=== PATIENT | female | born 1945 | race Caucasian/White ===

== ENCOUNTER 2024-03-11 12:20 | Inpatient (IN) ==
--- NOTE | 2024-03-11 13:29 | Emergency Department Note ---
Impression & Plan Tachy-andrez syndrome, Atrial tachycardia, Hypertension ED Provider Note NAME: FEDERICO DINH AGE: 78 SEX: F : 1945 ARRIVES VIA: Walk-In INFORMANT: Patient, ED PROVIDER(S): Imer Corona MD CHIEF COMPLAINT: Elevated heart rate, dizziness MEDICAL DECISION MAKING: Patient presents due to concern for abnormal EKG and lightheadedness. IV was established and blood work was obtained. Blood work shows a normal white count mild elevation hemoglobin the patient was ordered IV fluids. Platelet count is unremarkable. Kidney function with creatinine 1.4 which is slightly higher than her baseline of 1.1 from about a week prior. The patient did receive IV fluids. BSG 131 but nonfasting and not DKA. TSH is elevated but free T4 is normal troponin negative. I did review the EKGs with Dr. Cassidy stated the patient likely had ectopic atrial rhythm on 1 and noticed a likely atrial tachycardia with a 2 1 block. Given the patient's wide range of heart rates in a short period of time we did suggest admission on telemetry. I did [place] the on-call hospital service and the patient was admitted by Dr. Weaver. Discussion w/ other healthcare providers: Dr. Mitchell with cardiology Dr. Weaver with inpatient medicine service Prior /Outside records reviewed: I reviewed a primary care visit from Juanis emmanuelle I will from earlier today. Patient was noted to be tachycardic and had an EKG. this note was currently still in draft. I did review her vascular surgery outpatient note from March 03, 2024. Patient was evaluated in the emergency department prior to the visit for flank and back pain noted to have an infrarenal AAA 5.6 cm. Patient was to have a CT and echocardiogram and then discussing surgical intervention thereafter. Patient also was seen for left subclavian occlusion asymptomatic and recommended she control her blood pressure readings based on readings in her right arm. Patient was seen by Dr. Peraza and Dr. Alberto Differential diagnosis: Benign positional vertigo, dehydration, hypovolemia, anemia, infection, hypoglycemia, electrolyte abnormalities, arrhythmia, tox among others were considered. Diagnostics, as interpreted by me: ECG: No obvious P waves noted possible junctional accelerated rhythm, rate of 109, normal QRS duration, left axis deviation no ST elevations. Repeat EKG interpreted by myself Sinus bradycardia, rate of 58, normal intervals, left axis deviation no ST elevations. P waves are apparent on this EKG compared to prior. Cardiac monitoring: An order was placed for continuous cardiac monitoring. The monitor shows a rate of 65 with sinus rhythm. Patient was placed on pulse oximetry Medical decision rules: None Imaging studies: I informally interpreted the patient'sChest x-ray does not show obvious pneumonia or pneumothorax with formal report to follow. HPI: Patient presents due to concern for abnormal EKG and abnormal vital signs while being seen in the office today. Patient reportedly was diaphoretic at the time of the EKG sat up quickly and had low blood pressure and felt lightheaded and dizzy. The patient was referred here for further evaluation and treatment. Patient denies any chest pains or shortness of breath. Patient states that the people episode of dizziness lasted about 60 seconds in duration. The patient denies any thyroid dysfunction. The patient has been placed on new medications in light of untreated hypertension. The patient was recently diagnosed with a AAA has had follow-up with Dr. Alberto and recently did complete her CT angiography. Still pending an echocardiogram as well as a follow-up with Dr. Alberto to discuss further treatment options. Patient denies any abdominal pain no nausea or vomiting. Patient states that she did have 2 cups of coffee this morning and states she typically drinks 2 to 4 cups of coffee. Patient does take some elderberry as well as glucosamine. Patient states that she has developed a dry cough since being started on lisinopril and did have an increase from 2.5 to 5 mg recently. PAST MEDICAL HISTORY: See Below PAST SURGICAL HISTORY: See Below SOCIAL HISTORY: See Below HOME MEDICATIONS: See Below ALLERGIES: See Below VITALS: See Below PHYSICAL EXAMINATION: GENERAL: NAD, non-toxic. EYE EXAM: Normal conjunctiva. PERRL, no anisocoria and EOM's grossly intact w/o pain. OROPHARYNX: Moist mucus membranes, grossly normal dentition. NECK: Trachea midline, no stridor. Supple, no nuchal rigidity, no adenopathy, non-tender. No signs of meningismus. FROM of the neck with good chin to chest and neck extension. LUNGS: Clear to auscultation. Normal chest wall mechanics. HEART: NSR, no MRG. ABDOMEN: Abdomen soft, non-tender, no masses, no rebound or guarding. BACK: No CVA TTP. SKIN: No rashes and no bruising. UPPER EXTREMITIES: Upper extremities are grossly normal. LOWER EXTREMITIES: Grossly normal, no edema. NEURO EXAM: A&O x3, cranial nerves II-XII grossly intact, normal speech, moves all 4 extremities. Past Med/Surg History Problem List (Updated 03/11/24 @ 19:24 by Imer Corona MD) Atrial tachycardia (Acute) Tachy-andrez syndrome (Acute) Vertebral artery stenosis Hyperglycemia Hypertension (Acute) Subclavian artery stenosis, left (Acute) AAA (abdominal aortic aneurysm) without rupture (Acute) Strain of mid-back (Acute) Surgical History H/O section Family History Father Coronary heart disease Lung cancer Lung disease Hypertension Heart disease Myocardial infarction Grandmother (Maternal) Diabetes Brother Diabetes Mother Diabetes Son COPD (chronic obstructive pulmonary disease) Daughter Diabetes Son COPD (chronic obstructive pulmonary disease) Diabetes Myocardial infarction Denies family history of Ovarian cancer Prostate cancer Cerebral aneurysm Alzheimer disease Bipolar disorder Clotting disorder Crohn's disease Dementia Depression Breast cancer Colorectal cancer Stroke Asthma Social History Smoking Status: Former smoker Tobacco Type: Cigarettes Second Hand Exposure: No; Do You Dip or Chew Tobacco: No; Hx Alcohol Use: No Hx Substance Use: No Preferred Language: Belgian Communication Ability: Effective Associate Theatre Professor Required: No Beliefs That Will Affect Care: None marital status: Current Living Situation: Alone Feels Safe at Home: Yes Assistive Devices: None Allergies Allergies Allergy/AdvReac Type Severity Reaction Status Date / Time No Known Allergies Allergy Unverified 03/11/24 11:38 Home Meds Home Medications Medication Instructions Recorded Confirmed ibuprofen 200 mg tablet 200 mg PO Q6H PRN pain/fever 03/02/24 03/11/24 Previous Rx's Medication Instructions Recorded atorvastatin 20 mg tablet 20 mg PO DAILY #90 tabs 03/05/24 lisinopril 5 mg tablet 5 mg PO DAILY #90 tabs 03/05/24 omeprazole 20 mg capsule,delayed 20 mg PO DAILY #90 caps 03/05/24 release Results & Data (ED) Vital Signs Vital Signs - 24 hr 03/11/24 12:21 03/11/24 12:22 03/11/24 12:33 Temperature 36.6 C Temperature Source Temporal Artery Scan Pulse Rate 60 83 109 H Pulse Rate [Apical] Pulse Rate from SpO2 Sensor 109 H Pulse Rhythm Regular Pulse Rhythm [Apical] Pulse Strength [Apical] Respiratory Rate 19 14 23 Respiratory Effort / Characteristics Respiratory Depth Respiratory Pattern Blood Pressure 121/73 129/86 Blood Pressure [Right Arm] Blood Pressure Mean 89 100 Blood Pressure Mean [Right Arm] Blood Pressure Position [Right Arm] Pulse Oximetry 96 98 97 Oxygen Delivery Method Room Air Room Air Sepsis Recent Fever Within 48 Hours No Sepsis New/Unexplained Change in Mental Status N/A Sepsis Action Taken by Nursing No Action Required 03/11/24 12:38 03/11/24 13:30 03/11/24 13:59 Temperature Temperature Source Pulse Rate 59 L 60 Pulse Rate [Apical] 103 H Pulse Rate from SpO2 Sensor 59 L Pulse Rhythm Regular Pulse Rhythm [Apical] Regular Pulse Strength [Apical] Normal Respiratory Rate 20 20 16 Respiratory Effort / Characteristics Non-Labored Spontaneous Respiratory Depth Normal Respiratory Pattern Regular Blood Pressure 108/62 Blood Pressure [Right Arm] 123/76 Blood Pressure Mean 77 Blood Pressure Mean [Right Arm] 91 Blood Pressure Position [Right Arm] Semi-fowlers Pulse Oximetry 98 96 96 Oxygen Delivery Method Room Air Room Air Room Air Sepsis Recent Fever Within 48 Hours Sepsis New/Unexplained Change in Mental Status Sepsis Action Taken by Nursing 03/11/24 14:00 03/11/24 15:00 03/11/24 16:00 Temperature Temperature Source Pulse Rate 55 L 55 L 56 L Pulse Rate [Apical] Pulse Rate from SpO2 Sensor 55 L 54 L 56 L Pulse Rhythm Pulse Rhythm [Apical] Pulse Strength [Apical] Respiratory Rate 19 16 19 Respiratory Effort / Characteristics Respiratory Depth Respiratory Pattern Blood Pressure 123/62 150/68 H 127/72 Blood Pressure [Right Arm] Blood Pressure Mean 82 95 90 Blood Pressure Mean [Right Arm] Blood Pressure Position [Right Arm] Pulse Oximetry 97 97 94 Oxygen Delivery Method Room Air Room Air Room Air Sepsis Recent Fever Within 48 Hours Sepsis New/Unexplained Change in Mental Status Sepsis Action Taken by Nursing 03/11/24 16:00 Temperature Temperature Source Pulse Rate Pulse Rate [Apical] Pulse Rate from SpO2 Sensor Pulse Rhythm Pulse Rhythm [Apical] Pulse Strength [Apical] Respiratory Rate Respiratory Effort / Characteristics Respiratory Depth Respiratory Pattern Blood Pressure 127/72 Blood Pressure [Right Arm] Blood Pressure Mean 97 Blood Pressure Mean [Right Arm] Blood Pressure Position [Right Arm] Pulse Oximetry Oxygen Delivery Method Sepsis Recent Fever Within 48 Hours Sepsis New/Unexplained Change in Mental Status Sepsis Action Taken by Skilled Nursing Medications Current Medication List: was personally reviewed by me Laboratory Data Attestation: I reviewed the patient's lab results. 03/11/24 12:32 03/11/24 12:32 Lab Results 03/11/24 Range/Units 12:32 WBC 7.88 (4.8-10.8) K/ul RBC 5.11 (4.20-5.40) M/uL Hgb 16.6 H (12.0-16.0) g/dl Hct 49.7 H (37.0-47.0) % MCV 97.3 (80.0-100.0) fL MCH 32.5 (25.0-34.0) pg MCHC 33.4 (32.0-36.0) g/dL RDW Std Deviation 43.5 (36.4-46.3) fL RDW Coeff of Zina 12.0 (11.5-14.5) % Plt Count 210 (130-400) K/uL MPV 10.9 (9.4-12.4) fL Immature Gran % (Auto) 0.5 % Neut % (Auto) 64.3 % Lymph % (Auto) 25.9 % Stone % (Auto) 7.1 % Eos % (Auto) 1.6 % Baso % (Auto) 0.6 % Neut # (Auto) 5.06 (1.40-6.50) K/uL Lymph # (Auto) 2.04 (1.20-3.40) K/uL Stone # (Auto) 0.56 (0.11-0.59) K/uL Eos # (Auto) 0.13 (0.00-0.50) K/uL Baso # (Auto) 0.05 (0.00-0.20) K/uL Immature Gran # (Auto) 0.04 (0.01-0.20) K/uL PT 11.0 (9.0-12.0) Seconds INR 1.0 (0.9-1.1) Sodium 139 (136-145) mmol/L Potassium 4.4 (3.5-5.1) mmol/L Chloride 105 (98-107) mmol/L Carbon Dioxide 26 (21-32) mmol/L Anion Gap 8 (3-11) BUN 28 H (6-23) mg/dl Creatinine 1.44 H (0.6-1.2) mg/dl Est Cr Clr Drug Dosing 29.0 ml/min Est GFR ( Amer) 39.9 ml/min Est GFR (Non-Af Amer) 34.5 ml/min BUN/Creatinine Ratio 19.4 (10-20) Glucose 131 H (70-99(Fasting)) mg/dl Calcium 9.4 (8.6-10.3) mg/dl Phosphorus 4.0 (2.5-4.9) mg/dl Magnesium 1.9 (1.7-2.4) mg/dl Total Bilirubin 0.7 (0.2-1.0) mg/dl AST 15 (13-39) U/L ALT 16 (7-52) U/L Alkaline Phosphatase 67 (34-104) U/L Troponin I High Sens 12.0 (0-14) pg/ml Total Protein 7.6 (6.0-8.3) gm/dl Albumin 4.4 (3.4-5.0) gm/dl Globulin 3.2 (2.5-4.0) gm/dl Albumin/Globulin Ratio 1.4 (0.9-2) TSH 4.748 H (0.300-4.500) uIu/ml Free T4 1.08 (0.61-1.60) ng/dl Administered Medications Discontinued Medications Sodium Chloride (Nss) 500 mls @ 999 mls/hr IV .Q31M TIM Stop: 03/11/24 14:30 Last Infusion: 03/11/24 14:49 Dose: Infused Documented By: Admin: 03/11/24 14:07 Dose: 999 mls/hr Documented By: PJ Imaging Data Radiologist's Impression: Chest X-Ray 03/11/24 13:59 SINGLE VIEW CHEST CLINICAL HISTORY: Generalized weakness. FINDINGS: An AP, portable, upright chest radiograph is correlated with chest CT dated 03/02/2024. The cardiomediastinal silhouette is top normal for projection noting atherosclerotic calcification of the thoracic aorta. There is a large hiatal hernia with atelectasis at the left lung base. Chronic interstitial thickening similar to previous. No airspace consolidation or large pleural effusion is identified. No pneumothorax is seen. The skeletal structures are osteopenic. The bony thorax is grossly intact. IMPRESSION: 1. No active disease in the chest. 2. Large hiatal hernia. ACT 112: Negative or not required by law. Electronically signed by: Alex Tang M.D. 03/11/2024 2:27 PM Discharge Plan Visit Data Chief Complaint: Abnormal Labs/Diagnostic Testing Stated Complaint: ABN EKG ED Provider: Imer Corona Discharge Problem: Tachy-andrez syndrome, Atrial tachycardia, Hypertension Patient Disposition: Admitted As Inpatient Discharge Instructions Interventions: ED Discharge Assessment Last Done: 03/11/24 18:18 Discharge Problem: Hypertension Qualifiers: Hypertension type: unspecified Qualified Code(s): I10 - Essential (primary) hypertension
[2024-03-11] MEDS: SODIUM CHLORIDE 0.9% 500 ML IV SCH (14:07)
[2024-03-11 14:27] LABS: Basophils # (auto) 0.05 K/uL (0.00-0.20); Basophils % (auto) 0.6 %; Eosinophils # (auto) 0.13 K/uL (0.00-0.50); Eosinophils % (auto) 1.6 %; Hematocrit (blood only) 49.7 % (37.0-47.0); Hemoglobin 16.6 g/dl (12.0-16.0); Immature Granulocytes # (auto) 0.04 K/uL (0.01-0.20); Immature Granulocytes % (auto) 0.5 %; Lymphocytes # (auto) 2.04 K/uL (1.20-3.40); Lymphocytes % (auto) 25.9 %; Mean Corpuscular Hemoglobin 32.5 pg (25.0-34.0); Mean Corpuscular Hgb Conc 33.4 g/dL (32.0-36.0); Mean Corpuscular Volume 97.3 fL (80.0-100.0); Mean Platelet Volume 10.9 fL (9.4-12.4); Monocytes # (auto) 0.56 K/uL (0.11-0.59); Monocytes % (auto) 7.1 %; Neutrophils # (auto) 5.06 K/uL (1.40-6.50); Neutrophils % (auto) 64.3 %; Platelet Count 210 K/uL (130-400); RDW Standard Deviation 43.5 fL (36.4-46.3); Red Blood Count 5.11 M/uL (4.20-5.40); White Blood Count 7.88 K/ul (4.8-10.8)
--- NOTE | 2024-03-11 14:28 | XRay Report ---
SINGLE VIEW CHEST CLINICAL HISTORY: Generalized weakness. FINDINGS: An AP, portable, upright chest radiograph is correlated with chest CT dated 03/02/2024. The cardiomediastinal silhouette is top normal for projection noting atherosclerotic calcification of the thoracic aorta. There is a large hiatal hernia with atelectasis at the left lung base. Chronic inter stitial thickening similar to previous. No airspace consolidation or large pleural effusion is identi fied. No pneumothorax is seen. The skeletal structures are osteopenic. The bony thorax is grossly int act. IMPRESSION: 1. No active disease in the chest. 2. Large hiatal hernia. ACT 112: Negative or not required by law. Electronically signed by: Alex Tang M.D. 03/11/2024 2:27 PM
[2024-03-11 14:38] LABS: Albumin Globulin Ratio 1.4 (0.9-2); Albumin Level 4.4 gm/dl (3.4-5.0); BUN Creatinine Ratio 19.4 (10-20); Bilirubin,Total 0.7 mg/dl (0.2-1.0); Calcium 9.4 mg/dl (8.6-10.3); Est GFR (African American) 39.9 ml/min; Est GFR (Non-African American) 34.5 ml/min; Globulin 3.2 gm/dl (2.5-4.0); Magnesium 1.9 mg/dl (1.7-2.4); Potassium 4.4 mmol/L (3.5-5.1); Total Protein 7.6 gm/dl (6.0-8.3)
[2024-03-11 14:53] LABS: Thyroid Stimulating Hormone 4.748 uIu/ml (0.300-4.500)
[2024-03-11 15:30] LABS: T4 Free Thyroxine 1.08 ng/dl (0.61-1.60)
--- NOTE | 2024-03-11 16:00 | History & Physical Report ---
Date of Service March 11, 2024 Assessment & Plan (1) Tachy-andrez syndrome: Plan: Consult cardiology - discussed with Dr Mitchell and recommended observation overnight, probably will start low dose BB as long as no extremem HB or bradycardia overnight - will defer starting this to cardiology (2) Atrial tachycardia: (3) Hypertension: Plan: Hold lisinopril to allow BP for BB is needed Plan VTE Prophylaxis - low risk Diet - regular Disposition - admit to PCU Admission and Anticipated Discharge Date Admission Date: March 11, 2024 History of Present Illness Chief Complaint: Abnormal EKG, tachy-andrez syndome Primary Care Provider: Juanis Manning DO Amanda Boykin is a 78 year old female who presents to the ER due to abnormal EKG at PCP office earlier today. Asymptomatic at that appointment - having routine follow up for AAA, subclavian stenosis No prior RI or stroke. Otherwise feeling well. No chest pain, shortness of breath, palpitations, dizziness, leg swelling, weight gain. Allergies Allergy/AdvReac Type Severity Reaction Status Date / Time No Known Allergies Allergy Unverified 03/11/24 11:38 Home Medications Medication Instructions Recorded Confirmed Type ibuprofen 200 mg tablet 200 mg PO Q6H PRN pain/fever 03/02/24 03/11/24 History atorvastatin 20 mg tablet 20 mg PO DAILY #90 tabs 03/05/24 03/11/24 Rx lisinopril 5 mg tablet 5 mg PO DAILY #90 tabs 03/05/24 03/11/24 Rx omeprazole 20 mg capsule,delayed 20 mg PO DAILY #90 caps 03/05/24 03/11/24 Rx release Past Med/Surg History Problem List (Updated 03/11/24 @ 19:24 by Imer Corona MD) Atrial tachycardia (Acute) Tachy-andrez syndrome (Acute) Vertebral artery stenosis Hyperglycemia Hypertension (Acute) Subclavian artery stenosis, left (Acute) AAA (abdominal aortic aneurysm) without rupture (Acute) Strain of mid-back (Acute) Surgical History H/O section Family History Father Coronary heart disease Lung cancer Lung disease Hypertension Heart disease Myocardial infarction Grandmother (Maternal) Diabetes Brother Diabetes Mother Diabetes Son COPD (chronic obstructive pulmonary disease) Daughter Diabetes Son COPD (chronic obstructive pulmonary disease) Diabetes Myocardial infarction Denies family history of Ovarian cancer Prostate cancer Cerebral aneurysm Alzheimer disease Bipolar disorder Clotting disorder Crohn's disease Dementia Depression Breast cancer Colorectal cancer Stroke Asthma Social History Smoking Status: Former smoker Tobacco Type: Cigarettes Second Hand Exposure: No; Do You Dip or Chew Tobacco: No; Hx Alcohol Use: No Hx Substance Use: No Preferred Language: Dutch Communication Ability: Effective Ip Network Architect Required: No Beliefs That Will Affect Care: None marital status: Current Living Situation: Alone Feels Safe at Home: Yes Assistive Devices: None Review of Systems Review of Systems: All systems reviewed & are unremarkable except as noted in HPI & below Physical Exam Constitutional: WD/WN, vitals as above Eyes: PERRL, conjunctivae normal, anicteric sclerae ENMT: external ear and nose normal, oropharynx normal Respiratory: normal respiratory effort, lungs clear to auscultation Cardiovascular: RRR, no murmur, no edema Gastrointestinal (Abdomen): normal bowel sounds, soft, nontender, no hepato splenomegaly Musculoskeletal: no cyanosis or clubbing, extremities motor strength 5/5 Skin: no rashes, warm and dry Neurologic: moves all extremities and awake; not confused Psychiatric: A+Ox3, euthymic affect Results & Data Results & Data Vital Signs (Past 12 Hours) Vital Signs Temp Pulse Pulse Resp BP BP Pulse Ox 03/11/24 13:59 60 16 96 03/11/24 12:38 103 H 20 123/76 98 03/11/24 12:22 36.6 C 83 14 121/73 98 03/11/24 12:21 60 19 96 O2 Del Method 03/11/24 13:59 Room Air 03/11/24 12:38 Room Air 03/11/24 12:22 Room Air 03/11/24 12:21 Room Air Laboratory Results Abnormal lab results 03/11/24 Range/Units 12:32 Hgb 16.6 H (12.0-16.0) g/dl Hct 49.7 H (37.0-47.0) % BUN 28 H (6-23) mg/dl Creatinine 1.44 H (0.6-1.2) mg/dl Glucose 131 H (70-99(Fasting)) mg/dl TSH 4.748 H (0.300-4.500) uIu/ml Diagnostic Findings SINGLE VIEW CHEST CLINICAL HISTORY: Generalized weakness. FINDINGS: An AP, portable, upright chest radiograph is correlated with chest CT dated 03/02/2024. The cardiomediastinal silhouette is top normal for projection noting atherosclerotic calcification of the thoracic aorta. There is a large hiatal hernia with atelectasis at the left lung base. Chronic interstitial thickening similar to previous. No airspace consolidation or large pleural effusion is identified. No pneumothorax is seen. The skeletal structures are osteopenic. The bony thorax is grossly intact. IMPRESSION: 1. No active disease in the chest. 2. Large hiatal hernia. Medications Administered ER Medications Given: Normal saline 500ml bolus ECG Rate (beats per minute): 109 Rhythm: other (Atrial tachycardia with 2:1 AV block) Findings: no acute ischemic change Comparison ECG Date: from (March 02, 2024) Change: the following changes noted (Atrial tachycardia rhythm is new) Code Status & VTE Plan Code Status Full VTE Prophylaxis Plan VTE Prophylaxis will be ordered: No PG Care Time/CCT Total # of Minutes Spent Total Time Spent with Patient: Total time spent is greater than 50% in coordination of care (as documented) at patient's floor/unit and/or counseling patient: Coding Level of Care Code 38012 INT INP/OBS CARE 2MIN Diagnoses Tachy-andrez syndrome I49.5 Atrial tachycardia I47.19 Hypertension I10 Hypertension type: unspecified (3) Hypertension Hypertension type: unspecified Qualified Code(s): I10 - Essential (primary) hypertension
--- NOTE | 2024-03-11 17:15 | Cardiology Consultation ---
Date of Consultation March 11, 2024 Assessment & Plan (1) Atrial tachycardia: (2) Tachy-andrez syndrome: (3) Hypertension: (4) AAA (abdominal aortic aneurysm) without rupture: Plan 78-year-old woman with incidentally noted tachybradycardia syndrome with either sinus or ectopic atrial rhythm which is mildly bradycardic alternating with possible atrial tachycardia with 2-1 block. She did have some orthostatic lightheadedness after ECG today, but is otherwise asymptomatic. Recommend telemetry monitoring overnight to exclude more extreme bradycardia or tachycardia, if she shows no evidence of marked bradycardia or heart block, would initiate very low-dose beta-rubens tomorrow (metoprolol succinate 12.5 mg daily) to suppress tachydysrhythmia. Would check orthostatics given her lightheadedness after sitting upright today. Hold lisinopril until her hemodynamics are further evaluated, particularly since a beta-rubens may be initiated. She is undergoing evaluation by Dr. Alberto for endovascular repair of her abdominal aortic aneurysm. As an outpatient, would titrate statin upward if possible to achieve LDL less than 70 given her known vascular disease. History of Present Illness Reason for Consultation: Arrhythmia Requesting Physician: Bhavin Weaver MD Attending Physician: Bhavin Weaver MD History of Present Illness 78-year-old woman with history of vascular disease (left subclavian occlusion, 6.1 cm AAA), hypertension, no other cardiac history, was noted to have a variable heart rate at the time of an office visit to her PCP today, ER evaluation showed alternating relative bradycardia (58 bpm with ectopic atrial rhythm) and mild tachycardia (probable atrial tachycardia with 2-1 AV block at 108 bpm). She has not noted symptoms of palpitations, routine orthostasis, or lightheadedness. No presyncope or syncope. She did feel briefly lightheaded after having her ECG in the PCPs office today when she sat upright. She has a history of a vertigo type syndrome many months ago, but has not had any recent orthostatic symptoms, with the exception of those in the PCP office. She denies any exercise intolerance, dyspnea on exertion, or chest pain. She was comfortable at the time of my evaluation this afternoon and had no so matic complaints. Allergies Allergy/AdvReac Type Severity Reaction Status Date / Time No Known Allergies Allergy Unverified 03/11/24 11:38 Home Medications Medication Instructions Recorded Confirmed Type ibuprofen 200 mg tablet 200 mg PO Q6H PRN pain/fever 03/02/24 03/11/24 History atorvastatin 20 mg tablet 20 mg PO DAILY #90 tabs 03/05/24 03/11/24 Rx lisinopril 5 mg tablet 5 mg PO DAILY #90 tabs 03/05/24 03/11/24 Rx omeprazole 20 mg capsule,delayed 20 mg PO DAILY #90 caps 03/05/24 03/11/24 Rx release Patient History Surgical History H/O section Family History Father Coronary heart disease Lung cancer Lung disease Hypertension Heart disease Myocardial infarction Grandmother (Maternal) Diabetes Brother Diabetes Mother Diabetes Son COPD (chronic obstructive pulmonary disease) Daughter Diabetes Son COPD (chronic obstructive pulmonary disease) Diabetes Myocardial infarction Denies family history of Ovarian cancer Prostate cancer Cerebral aneurysm Alzheimer disease Bipolar disorder Clotting disorder Crohn's disease Dementia Depression Breast cancer Colorectal cancer Stroke Asthma Social History Smoking Status: Former smoker Hx Alcohol Use: No Hx Substance Use: No Preferred Language: Tunisian marital status: Current Living Situation: Alone Feels Safe at Home: Yes Physical Exam Physical Exam: Normal habitus elderly white female in no distress. Normotensive. Pulse 56 bpm and regular. Respirations 19 and unlabored. Skin: no ecchymoses or generalized lesions. HEENT: unremarkable. Neck: JVP at the clavicle at 90 degrees, no carotid bruits. Lungs: clear. Cardiac: regular rhythm, normal S1-2, no murmur. Abdomen: benign. Extremities: no edema, pulses intact. Neurologic: normal affect and conversation, nonfocal. Results & Data Laboratory Results Troponin 12.0. Normal electrolytes, BUN 28, creatinine 1.44. Magnesium 1.9. Hemoglobin 16.6 with normal white count and platelet count. Recent labs with cholesterol 176, HDL 55, LDL 102, ratio 3.2, triglycerides 94. TSH 4.74, free T41.08. Diagnostic Findings ECG from 03/02/2024 showed sinus versus ectopic atrial rhythm at 55 bpm, otherwise unremarkable. Initial ECG today showed a mildly tachycardic rhythm at 109 bpm, P waves were not clearly discernible but there appeared to be an abnormal P wave in V1 with a long VT interval, suspect second had an P wave, most likely atrial tachycardia with 2-1 AV conduction. Compared with prior, rate has increased by 54 bpm (approximate doubling of baseline). A second ECG today showed sinus versus ectopic atrial rhythm at 58 bpm. Chest x-ray showed a large hiatal hernia, otherwise unremarkable. PG Care Time/CCT Total # of Minutes Spent Total Time Spent with Patient: Total time spent is greater than 50% in coordination of care (as documented) at patient's floor/unit and/or counseling patient: Coding Level of Care Code 02883 INT INP/OBS CARE 3MIN Diagnoses Atrial tachycardia I47.19 Tachy-andrez syndrome I49.5 Hypertension I10 Hypertension type: unspecified AAA (abdominal aortic aneurysm) without rupture I71.43 Abdominal aorta location: infrarenal aorta (3) Hypertension Hypertension type: unspecified Qualified Code(s): I10 - Essential (primary) hypertension (4) AAA (abdominal aortic aneurysm) without rupture Abdominal aorta location: infrarenal aorta Qualified Code(s): I71.43 - Infrarenal abdominal aortic aneurysm, without rupture
--- NOTE | 2024-03-11 17:46 | Electrocardiogram Report ---
Test Reason : Blood Pressure : / mmHG Vent. Rate : 109 BPM Atrial Rate : 000 BPM P-R Int : 000 ms QRS Dur : 094 ms QT Int : 322 ms P-R-T Axes : 000 -27 097 degrees QTc Int : 433 ms Possible Atrial tachycardia with 2:1 A-V block Abnormal ECG When compared with ECG of 02-MAR-2024 15:29, Sinus rhythm no longer present Vent. rate has increased BY 54 BPM(double prior rate) Confirmed by Alf Mitchell ([id number]) on 03/11/2024 5:45:39 PM Referred By: Juanis Manning Confirmed By:Alf Mitchell
--- NOTE | 2024-03-11 17:53 | Electrocardiogram Report ---
Test Reason : Blood Pressure : / mmHG Vent. Rate : 058 BPM Atrial Rate : 058 BPM P-R Int : 192 ms QRS Dur : 080 ms QT Int : 420 ms P-R-T Axes : 096 -25 061 degrees QTc Int : 412 ms Sinus bradycardia vs. ectopic atrial rhythm Abnormal ECG When compared with ECG of 11-MAR-2024 12:29, Atrial tachycardia no longer present Vent. rate has decreased BY 51 BPM Confirmed by Alf Mitchell ([id number]) on 03/11/2024 5:53:48 PM Referred By: Juanis Manning Confirmed By:Alf Mitchell
[2024-03-11] MEDS: MAGNESIUM SULFATE / D5W 1 GM/100 ML BAG IV ONE (20:03)
[2024-03-12] MEDS: ATORVASTATIN 20 MG TAB PO SCH (08:09)
[2024-03-12] MEDS: PANTOprazole 40 MG TAB PO SCH (08:09)
[2024-03-12] MEDS: METOPROLOL SUCC 25MG EXT REL TAB PO SCH (10:33)
--- NOTE | 2024-03-12 10:52 | Hospitalist Progress Note ---
Date of Service March 12, 2024 Assessment & Plan (1) Tachy-andrez syndrome: Plan: Telemetry. Low heart rate last evening was 46. Cardiology consultation and recommendations appreciated. Low-dose metoprolol succinate has been started. (2) Atrial tachycardia: Plan: Telemetry. Low-dose metoprolol succinate has been started. (3) Hypertension: Plan: Metoprolol succinate replaces lisinopril. Will follow Plan Hopeful discharge to home tomorrow, March 13 Admission and Anticipated Discharge Date Admission Date: March 11, 2024 Subjective Alert and oriented. No new problems. Telemetry was reviewed. Per low heart rate was 46 overnight. She has been started on metoprolol succinate 12.5 mg daily to prevent further PAT. Lisinopril has been discontinued. Review of Systems 2 Review of Systems: Constitutional-no fever or chills ENT-no blurred vision, no double vision, no epistaxis, no sore throat Respiratory-no cough, no wheezing, no shortness of breath Cardiac- no chest pain, no syncope. She does occasionally notice palpitations GI-no nausea, vomiting, diarrhea, melena, hematochezia -no urinary retention, no urinary incontinence, no dysuria, no hematuria Musculoskeletal-no joint pain, no muscle tenderness Skin-no bruising, no rashes, no pruritus Neuro-no isolated weakness, no paresthesia, no weakness Psych-no depression, no anxiety Physical Exam 2 Physical Exam: General-alert and oriented x3, no fever, no chills HEENT-head atraumatic and normocephalic, pupils equal and reactive to light, extraocular muscles intact Neck-no lymphadenopathy or thyromegaly, trachea midline Chest-clear to auscultation. No rales, wheezing or rhonchi Cardiac-regular rate and rhythm, normal S1 and S2 Abdomen-normal bowel sounds, no hepatosplenomegaly Extremities-no cyanosis, clubbing, or edema Neuro-cranial nerves II through XII intact, motor and sensory function within normal limits, strength symmetrical, no focal deficits Psych-normal affect, normal mood Results & Data Results & Data Vital Signs (Past 12 Hours) Vital Signs Temp Pulse Pulse Resp BP Pulse Ox O2 Del Method 03/12/24 07:26 36.7 C 48 L 18 148/70 H 94 Room Air 03/12/24 07:19 56 L 03/12/24 02:56 36.4 C L 54 L 17 112/67 95 Room Air 03/11/24 23:19 36.5 C 58 L 16 123/74 93 Room Air Laboratory Results 03/11/24 12:32 03/11/24 12:32 PG Care Time/CCT Total # of Minutes Spent Total Time Spent with Patient: Total time spent is greater than 50% in coordination of care (as documented) at patient's floor/unit and/or counseling patient: Coding Level of Care Code 89625 SUB INP/OBS CARE 3/50MIN Diagnoses Tachy-andrez syndrome I49.5 Atrial tachycardia I47.19 Hypertension I10 Hypertension type: unspecified (3) Hypertension Hypertension type: unspecified Qualified Code(s): I10 - Essential (primary) hypertension
--- NOTE | 2024-03-12 14:45 | Cardiology Progress Note ---
Date of Service March 12, 2024 Assessment & Plan (1) Atrial tachycardia: (2) Tachy-anderz syndrome: (3) Hypertension: (4) AAA (abdominal aortic aneurysm) without rupture: Plan Patient is doing well, completely asymptomatic but with ongoing mild tachybradycardia syndrome on telemetry. No episodes of extreme bradycardia or tachycardia and no heart block or pauses. Therefore, agree with initiation of metoprolol succinate 12.5 mg daily to suppress tachydysrhythmia, low-dose is in hopes of avoiding worsening bradycardia. If she does well overnight, would discharge on this medication with an MCOT monitor, further titration could be done as an outpatient. Continue to hold lisinopril, since titration of beta-rubens will be necessary would not reinstitute unless she has significant hypertension. As noted, could titrate statin upward as an outpatient. Admission and Anticipated Discharge Date Admission Date: March 11, 2024 Subjective Telemetry showed predominantly mild bradycardia (sinus versus ectopic atrial) with recurrent episodes of mild supraventricular tachycardia (rate 105 bpm range, longest 20 minutes). These were apparently completely asymptomatic, patient denies any palpitations, chest pain, dyspnea, or lightheadedness. Physical Exam Physical Exam: No distress. Normotensive. Pulse 58 bpm and regular. Respirations 18 and unlabored. Skin: no ecchymoses or generalized lesions. HEENT: unremarkable. Neck: JVP at the clavicle at 90 degrees, no carotid bruits. Lungs: clear. Cardiac: regular rhythm, normal S1-2, no murmur. Abdomen: benign. Extremities: no edema, pulses intact. Neurologic: normal affect and conversation, nonfocal. Results & Data Vital Signs (Past 12 Hours) Vital Signs Temp Pulse Pulse Resp BP Pulse Ox O2 Del Method 03/12/24 10:52 97.5 F L 61 18 132/76 93 Room Air 03/12/24 10:50 68 03/12/24 07:26 98.1 F 48 L 18 148/70 H 94 Room Air 03/12/24 07:19 56 L 03/12/24 02:56 97.5 F L 54 L 17 112/67 95 Room Air PG Care Time/CCT Total # of Minutes Spent Total Time Spent with Patient: Total time spent is greater than 50% in coordination of care (as documented) at patient's floor/unit and/or counseling patient: Coding Level of Care Code 09312 SUB INP/OBS CARE MIN Diagnoses Atrial tachycardia I47.19 Tachy-andrez syndrome I49.5 Hypertension I10 Hypertension type: unspecified AAA (abdominal aortic aneurysm) without rupture I71.43 Abdominal aorta location: infrarenal aorta (3) Hypertension Hypertension type: unspecified Qualified Code(s): I10 - Essential (primary) hypertension (4) AAA (abdominal aortic aneurysm) without rupture Abdominal aorta location: infrarenal aorta Qualified Code(s): I71.43 - Infrarenal abdominal aortic aneurysm, without rupture
--- NOTE | 2024-03-13 10:32 | Cardiology Progress Note ---
Date of Service March 13, 2024 Assessment & Plan (1) Atrial tachycardia: (2) Tachy-andrez syndrome: (3) Hypertension: (4) AAA (abdominal aortic aneurysm) without rupture: Plan She is doing well and could be discharged home today. Her episodes of supraventricular tachycardia are minimal and nonsustained on low-dose beta- rubens (metoprolol succinate 12.5 mg daily), would continue this as outpatient and have her remain off lisinopril (BP has been variable but she has not had sustained hypertension). Would recommend MCOT monitor for the next month to further evaluate efficacy of low-dose beta-rubens and controlling her SVT, I will order this now and have her pick the monitor up at the office after she is discharged today. Cardiology follow-up with me in approximately 1 month, I will schedule. Admission and Anticipated Discharge Date Admission Date: March 11, 2024 Subjective She remains asymptomatic. Denies chest pain, dyspnea, palpitations, or lightheadedness. Systolic BP has varied from 111-156 mmHg over the past couple of days. Telemetry showed bradycardia (sinus versus ectopic atrial) in the 50-55 bpm range with no major pauses or heart block. There were still occasional episodes of apparent atrial tachycardia with 2-1 block and ventricular rate of 105 bpm, but these were much less frequent and were not sustained. Physical Exam Physical Exam: No distress. BP mildly hypertensive (156/74 mmHg). Pulse 52 bpm and regular. Respirations 18 and unlabored. Skin: no ecchymoses or generalized lesions. HEENT: unremarkable. Neck: JVP at the clavicle at 90 degrees, no carotid bruits. Lungs: clear. Cardiac: regular rhythm, normal S1-2, no murmur. Abdomen: benign. Extremities: no edema, pulses intact. Neurologic: normal affect and conversation, nonfocal. Results & Data Vital Signs (Past 12 Hours) Vital Signs Temp Pulse Pulse Resp BP Pulse Ox O2 Del Method 03/13/24 08:10 98.1 F 52 L 18 156/74 H 98 Room Air 03/13/24 07:14 57 L 03/13/24 03:00 97.5 F L 61 17 111/66 95 Room Air 03/12/24 23:21 55 L 03/12/24 23:08 97.5 F L 53 L 17 115/66 95 Room Air PG Care Time/CCT Total # of Minutes Spent Total Time Spent with Patient: Total time spent is greater than 50% in coordination of care (as documented) at patient's floor/unit and/or counseling patient: Coding Level of Care Code 47587 SUB INP/OBS CARE 3/50MIN Diagnoses Atrial tachycardia I47.19 Tachy-andrez syndrome I49.5 Hypertension I10 Hypertension type: unspecified AAA (abdominal aortic aneurysm) without rupture I71.43 Abdominal aorta location: infrarenal aorta (3) Hypertension Hypertension type: unspecified Qualified Code(s): I10 - Essential (primary) hypertension (4) AAA (abdominal aortic aneurysm) without rupture Abdominal aorta location: infrarenal aorta Qualified Code(s): I71.43 - Infrarenal abdominal aortic aneurysm, without rupture
--- NOTE | 2024-03-13 11:59 | Discharge Summary ---
Date of Service March 13, 2024 Admission HPI Per Admitting Provider Amanda Boykin is a 78 year old female who presents to the ER due to abnormal EKG at PCP office earlier today. Asymptomatic at that appointment - having routine follow up for AAA, subclavian stenosis No prior OH or stroke. Otherwise feeling well. No chest pain, shortness of breath, palpitations, dizziness, leg swelling, weight gain. Principal Diagnosis Tachybradycardia syndrome, paroxysmal atrial tachycardia with 2-1 block Discharge Exam General-alert and oriented x3, no fever, no chills HEENT-head atraumatic and normocephalic, pupils equal and reactive to light, extraocular muscles intact Neck-no lymphadenopathy or thyromegaly, trachea midline Chest-clear to auscultation. No rales, wheezing or rhonchi Cardiac-regular rate and rhythm, normal S1 and S2 Abdomen-normal bowel sounds, no hepatosplenomegaly Extremities-no cyanosis, clubbing, or edema Neuro-cranial nerves II through XII intact, motor and sensory function within normal limits, strength symmetrical, no focal deficits Psych-normal affect, normal mood Discharge Data Allergies Allergy/AdvReac Type Severity Reaction Status Date / Time No Known Allergies Allergy Unverified 03/11/24 11:38 Consultations 03/11/24 15:16 Consult Cardiology Routine ED Decision to Admit Stat Hospital Course (1) Tachy-andrez syndrome: She has tolerated addition of low-dose metoprolol succinate so far. Cardiology consultation and recommendations appreciated. Lisinopril has been discontinued. She will wear a 30-day MCOT at discharge telemetry. (2) Atrial tachycardia: Telemetry. Tolerating low-dose metoprolol succinate (3) Hypertension: Metoprolol succinate replaces lisinopril. Will follow Plan Home today, March 13. She will wear a heart monitor for 30 days as an outpatient. Lisinopril has been discontinued. She is now on metoprolol succinate Total Time Total Time Spent Total Time Spent (In Minutes): 45 minutes Discharge Plan Discharge Items Patient Disposition: Home - Self-Care Reason For Visit: TACHY-ANDREZ SYNDROME, ATRIAL TACHYCARDIA Discharge Diagnosis: Tachybradycardia syndrome, paroxysmal atrial tachycardia was 2-1 block Activity: Resume your previous activity Non-emergency contact: Primary Care Provider and [employer] Call non-emergency contact if: you have any medication questions and your symptoms worsen Follow-up/Referrals: Basedow,Shannan, DO [Primary Care Provider] - Diet: Regular and Heart Healthy Addtl Attending Provider Instructions: Metoprolol succinate 12.5 mg once daily replaces lisinopril. Wear heart monitor for 30 days as an outpatient. Pick it up at Dr. Mitchell's office Pending Studies at Discharge: No Stand-Alone Forms: My [facility] [employer], Smoking Cessation Medications and DC Order Prescriptions: New metoprolol succinate 25 mg Tablet Extended Release 24 Hr 12.5 mg PO QAM Qty: 30 0RF Continued atorvastatin 20 mg tablet 20 mg PO DAILY Qty: 90 0RF omeprazole 20 mg capsule,delayed release(DR/EC) 20 mg PO DAILY Qty: 90 0RF ibuprofen 200 mg Tablet 200 mg PO Q6H PRN (Reason: pain/fever) Discontinued lisinopril 5 mg tablet 5 mg PO DAILY Qty: 90 0RF Discharge Orders: Discharge Order (Routine); Ordered 03/13/24 Ordered By: Bryn Garcias/Other Patient Handouts: Metoprolol Extended Release Oral Tablet Admission Data Admit Date/Time: 03/11/24 16:51 Attending Provider: Bryn Tavares Admit Provider: Bhavin Weaver Primary Care Provider: Juanis Manning Other Providers: Bhavin Weaver; Alf Mitchell Other Interventions: Discharge Summary Assessment (RN) Last Done: 03/13/24 11:42 Coding Level of Care Code 04436 INP/OBS DISCH >30 MIN Diagnoses Tachy-andrez syndrome I49.5 Atrial tachycardia I47.19 Hypertension I10 Hypertension type: unspecified
--- NOTE | 2024-03-13 12:12 | XCELERA ---
[id number]
== END 2024-03-13 12:53 | disposition home or self-care (01) | DRG 309 ==
LOC: ED 12:20 → SUATTDRO 16:51 → 2S 16:51